=== PATIENT | male | born 1975 | race Caucasian/White ===

== ENCOUNTER 2020-08-12 01:09 | Emergency (ER) | payer MEDICAID, SELFPAY ==
[2020-08-12 01:10] VITALS: BP 171/79; PULSE 77; RESP 18; TEMP 36.1; O2SAT 97; BMI 29.0
--- NOTE | 2020-08-12 01:16 | ED.VIS.GEN ---
History of Present Illness Chief Complaint: Wound Check Informant: Patient Onset: Today Quality: sore Location: left great toe Current Severity: Mild Maximum Severity: Mild Worsened by: palpation Relieved by: leaving alone Associated Symptoms: none. Narrative: Patient saw a plantar callus on his left great toe today that he suspects is from his work boots rubbing. He had a similar one on his right great toe in the past, and has remnants of it now. His looked at it and peeled skin off of it, making it starting to hurt and it bled a little as a result. He presents for evaluation of it as a result, this happened just prior to arrival. Patient states there was no pain in his toe prior to his pulling skin off of the surface. He also states he has had no discharge other than the bleeding. He has type 2 diabetes [id number] along with peripheral neuropathy in his feet, he does not always have numbness in his toes, but most of the time as they are now, they are partially numb. Patient states he is scheduled to see a controls technician in [place] in 2 days regarding a chronic deformity of his left small toe. Patient denies any systemic symptoms such as fevers or chills. He states his blood sugars been well controlled in the low 100s. He has no other symptoms or issues right now. - Past Medical History (1) Type 2 diabetes mellitus Status: Chronic Past Medical History - Allergies and Home Meds Allergies/Adverse Reactions: Allergies No Known Allergies Allergy (Verified 08/12/20 01:10) Primary Care Physician: [facility] Doctor,Out of [Primary Care Provider] - Lives: Spouse/ Significant Other Drugs: None Review of Systems General: Denies: Chills, Fever, Malaise, Sweats Eyes: Denies: Visual changes - bilaterally, Diplopia ENT: Denies: Rhinorrhea, Sore throat Cardiovascular: Denies: Chest pain, Palpitations Respiratory: Denies: Dyspnea, Cough, Dyspnea on exertion Gastrointestinal: Denies: Abdominal pain, Nausea, Vomiting, Diarrhea, Melena, Hematochezia Genitourinary: Denies: Dysuria, Hematuria, Frequency Musculoskeletal: Reports: Extremity Pain. Denies: Back pain Skin: Reports: Wounds. Denies: Rash Neurological: Reports: Parasthesia. Denies: Headache, Weakness Physical Exam Vital Signs/Narrative: Vital Signs Temp Pulse Resp BP Pulse Ox 08/12/20 01:10 97.0 F L 77 18 171/79 H 97 Inital Vital Signs reviewed: Yes General: Well nourished, Well developed, No Acute Distress - Well-appearing Head: Normocephalic, Atraumatic Respiratory: No distress Extremities: No edema, - - Mild tenderness at thickened raised callus of the left great toe. See below. There is a similar-appearing chronic, thickened callus at the tibial aspect of the right great toe, also without infection. Skin: Normal color, - - Superficially open wound without active bleeding, but a small amount of blood present on bandage at the tibial-plantar aspect of the left great toe. Mildly tender. No surrounding erythema or lymphangitis. No sign of infection, abscess, discharge. Neurological: Alert, Oriented x3, Cranial nerves II-XII grossly intact, Normal Strength, Parasthesia - All toes but gross sensation is intact Psychological: Normal affect, Normal Mood Diagnostic/Tx/Re-eval - Medical Decision Making As I discussed with the patient, the wound does appear to be a freshly unroofed pressure callus. There is no sign of infection. Since he has close outpatient follow-up in 2 days I do not think he requires any systemic antibiotics. I recommended topical antibiotics, at least daily dressing changes, and frequently checking the area to ensure if he starts to develop infection, it is detected early and I advised him to return if he suspects this. He is comfortable with that plan will follow-up with podiatry in 2 days as scheduled. ED Disposition - Plan for ED Patient: Disposition: Home or Assisted Living Diagnosis: Visit for wound check, Type 2 diabetes mellitus with pressure callus Instructions: ED Wound Check (No Infection), ED Wound Care Referrals: [facility] Doctor,Out of [Primary Care Provider] - Keep Ar appointment (on Tuesday) Additional Instructions: No systemic antibiotics are indicated for this superficially opened noninfected callus at this time, however topical antibiotics are indicated, which was placed on your wound in the ER, to help prevent infection since it is superficially open. You should change the dressing at least once per day and place a fresh small amount of antibiotic ointment on it with each dressing change. Make sure that you are frequently checking your toe so that if it starts to change you detect it. If the wound appears to be worsening such as redness, swelling, purulent discharge, or red streaking up your foot/leg, please return to the ER for another evaluation. Otherwise, follow-up with your controls technician as scheduled later this week.
[2020-08-12 01:18] VITALS: BP 132/109; PULSE 76; RESP 18; O2SAT 98
== END 2020-08-12 01:36 | disposition home or self-care (01) ==
LOC: ED 01:32
PROVIDERS: Emergency Provider Emergency Medicine; PCP Family Medicine
DX: L84 Corns and callosities (principal); E11.42 Type 2 diabetes mellitus with diabetic polyneuropathy; Z79.84 Long term (current) use of oral hypoglycemic drugs
CPT/HCPCS: 99282